=== PATIENT | female | born 1980 | race Caucasian/White ===

== ENCOUNTER 2023-09-13 20:20 | Emergency (ER) | payer OTHER ==
[~2023-09-13] VITALS: Ht 170.2 cm; Wt 77.8 kg
[2023-09-13] MEDS ORDERED: BACT800T5 PO (23:40)
[2023-09-14 00:17] VITALS: BP 134/60; TEMP 98; O2SAT 97
== END 2023-09-14 00:19 | disposition home or self-care (01) ==
LOC: M ED 20:20
DX: L72.0 Epidermal cyst (principal); Z88.2 Allergy status to sulfonamides